=== PATIENT | female | born 1945 | race African-American/Black ===

== ENCOUNTER → 2016-12-22 | Outpatient (CLI) | payer MEDICARE, OTHER ==
[~2016-12-22] MED LIST: ACET-704 PO; ASCO10002 PO; ASPI81TA2 PO; BUPR75TA6 PO; CARV25TA PO; CETI10TA22 PO; CHOL10003 PO; CYCL10TA2 PO; DARB25VI SQ; DOXA8TAB2 PO; FOLI1TAB16 PO; FURO-68 PO; HYDR-2762 PO; HYDR200T PO; HYDR25TA PO; INSU100I13 SQ; INSU200I SQ; LEVO125T5 PO; LIRA0.6P2 SQ; LORA-434 PO; MAGN400C PO; MECL12.52 PO; METH2.5T PO; OLME1TAB35 PO; OLME40TA PO; OMEG1CAP43 PO; PANT40TA3 PO; PENT400T2 PO; POTA10CA PO; POTA10TA10 PO; RANI300T3 PO; TRAM50TA PO; VIT1CAPS20 PO; VIT1TABL65 PO
[2016-12-22 09:27] VITALS: BP 163/81
--- NOTE | 2016-12-22 14:25 | RAD ---
Chest, 2 views, 12/22/2016: History: Productive cough and wheezing Comparison is made to a study from 08/08/2016. The heart is mildly enlarged. The pulmonary vascularity is normal. No pulmonary infiltrates are seen. There is no evidence of pleural fluid. IMPRESSION: 1. Cardiomegaly. 2. No acute abnormality is detected.
== END | disposition home or self-care (01) ==
LOC: DXRADRC 11:10
PROVIDERS: ATTEND Physician Assistant Medical
DX: R05 Cough (principal); R06.2 Wheezing
CPT/HCPCS: 71020

== ENCOUNTER 2017-02-15 17:13 | Emergency (ER) | payer MEDICARE, OTHER ==
[~2017-02-15 17:13] MED LIST changes: +ASPI-630 PO; -ASPI81TA2 PO; +CYCL-331 PO; -CYCL10TA2 PO; -OLME40TA PO; +OLME40TA12 PO
[2017-02-15 17:20] VITALS: BP 143/66
[2017-02-15] MEDS ORDERED: IV NORMAL SALINE 1,000ML 1,000 ML IV SCH (17:36)
[2017-02-15] MEDS ORDERED: 0.9 % SODIUM CHLORIDE 10 ML DISP.SYRIN. IV PRN (17:45)
--- NOTE | 2017-02-15 18:04 | EKG ---
[address] [address] Test Date: 2017-02-15 Test Time: 18:03:25 Pat Name: DANYELLE VERONICA Department: Room: Gender: F Trim Technician: : 1945 Requested By: LATA CHRISTIANSON Order Number: [id number] Reading MD: Rusty Capps Measurements Intervals [place] Rate: 68 P: 46 OK: 240 QRS: 9 QRSD: 82 T: 29 QT: 410 QTc: 441 Interpretive Statements SINUS RHYTHM PROLONGED OK INTERVAL Electronically Signed On 02-16-2017 10:53:41 CDT by Rusty Capps
[2017-02-15 18:06] LABS: BASO # 0.1 x10^3/uL (0.0-0.2); BASO % 1 % (0-3); EOS # 0.6 x10^3/uL (0.0-0.7); EOS % 16 % (0-3); HEMATOCRIT 26.4 % (36.0-47.0); HEMOGLOBIN 9.2 g/dL (12.0-15.5); LYMPH # 1.2 x10^3/uL (1.0-4.8); LYMPH % 30 % (24-48); MEAN CORPUSCULAR HEMOGLOBIN 30 pg (25-35); MEAN CORPUSCULAR HGB CONC 35 g/dL (31-37); MEAN CORPUSCULAR VOLUME 86 fL (79-100); MONO # 0.6 x10^3/uL (0.0-1.1); MONO % 15 % (0-9); NEUT # 1.4 x10^3uL (1.8-7.7); NEUT % 37 % (31-73); PLATELET COUNT 184 x10^3/uL (140-400); RED BLOOD COUNT 3.08 x10^6/uL (3.50-5.40); RED CELL DISTRIBUTION WIDTH 15.7 % (11.5-14.5); WHITE BLOOD COUNT 3.9 x10^3/uL (4.0-11.0)
[2017-02-15 18:17] LABS: ALBUMIN 2.9 g/dL (3.4-5.0); ALBUMIN/GLOBULIN RATIO 0.8 (1.0-1.7); CALCIUM 8.3 mg/dL (8.5-10.1); CREATININE 2.3 mg/dL (0.6-1.0); GFR 25.4; POTASSIUM 4.5 mmol/L (3.5-5.1); TOTAL BILIRUBIN 0.3 mg/dL (0.2-1.0); TOTAL PROTEIN 6.7 g/dL (6.4-8.2)
[2017-02-15] MEDS ORDERED: ACETAMINOPHEN 325 MG TABLET PO PRN (18:30)
[2017-02-15] MEDS ORDERED: ONDANSETRON PF 4 MG/2 ML VIAL. IV PRN (18:30)
--- NOTE | 2017-02-15 18:41 | PHYS DOC ---
Past History Past Medical History: CAD, CHF, Diabetes, Hypertension, Other Past Surgical History: Knee Replacement, Lumbar Laminectomy, Other Smoking: Non-smoker Alcohol Use: Rarely Drug Use: None Adult General Chief Complaint Chief Complaint: ABNORMAL LABS HPI HPI patient is a 71-year-old female with hx of DM and HTN, and ESRD with hyponatrermia noted on routine labs. She sees her nursing department chairperson every 6 months and gets routine labs prior to her evaluation. She has had no complaints, no chest pain no weakness, no dizziness, no paresthesias, no nausea, no vomiting, no change in urinary output, no change in medications, no weight gain. She does have some peripheral edema that is chronic in nature and not changed. She has no questions or concerns at this time she was told to come here secondary to her lab abnormalities Dr. Rueda PCP, Dr. Boo Nephrology Review of Systems Review of Systems Constitutional: Denies fever or chills [] Eyes: Denies change in visual acuity, redness, or eye pain [] HENT: Denies nasal congestion or sore throat [] Respiratory: Denies cough or shortness of breath [] Cardiovascular: No additional information not addressed in HPI [] GI: Denies abdominal pain, nausea, vomiting, bloody stools or diarrhea [] : Denies dysuria or hematuria [] Musculoskeletal: Denies back pain or joint pain [] Integument: Denies rash or skin lesions [] Neurologic: Denies headache, focal weakness or sensory changes [] Endocrine: Denies polyuria or polydipsia [] Current Medications Current Medications Current Medications Medications (Trade) Dose Ordered Sig/[facility] Start Time Stop Time Status Last Admin Dose Admin Sodium Chloride 1,000 ml @ 100 mls/hr Q10H 02/15/17 17:36 02/16/17 03:35 Sodium Chloride (Normal Saline Flush) 10 ml QSHIFT PRN 02/15/17 17:45 Allergies Allergies Allergies Coded Allergies Type Severity Reaction Last Updated Verified nifedipine Allergy Mild Rash 09/05/13 Yes hydralazine Allergy Unknown Photosensitivity 09/15/14 No Physical Exam Physical Exam Constitutional: Well developed, well nourished, no acute distress, non-toxic appearance. [] HENT: Normocephalic, atraumatic, bilateral external ears normal, oropharynx moist, no oral exudates, nose normal. [] Cardiovascular:Heart rate regular rhythm, no murmur [] Lungs & Thorax: Bilateral breath sounds clear to auscultation [] Abdomen: Bowel sounds normal, soft, no tenderness, no masses, no pulsatile masses. Mildly distended abdomen no succussion splash Skin: Warm, dry, no erythema, no rash. [] Back: No tenderness, no CVA tenderness. [] Extremities: No tenderness, no cyanosis, no clubbing, ROM intact, +2 pitting edema to the mid thigh noted Neurologic: Alert and oriented X 3, normal motor function, normal sensory function, no focal deficits noted. [] Psychologic: Affect normal, judgement normal, mood normal. [] Current Patient Data Vital Signs Vital Signs Date Time Temp Pulse Resp B/P (MAP) Pulse Ox O2 Delivery O2 Flow Rate FiO2 02/15/17 17:20 98.6 67 22 99 Room Air Lab Results Nursery Laboratory Tests 02/15/17 17:35: White Blood Count 3.9, Red Blood Count 3.08, Hemoglobin 9.2, Hematocrit 26.4, Mean Corpuscular Volume 86, Mean Corpuscular Hemoglobin 30, Mean Corpuscular Hemoglobin Concent 35, Red Cell Distribution Width 15.7, Platelet Count 184, Neutrophils (%) (Auto) 37, Lymphocytes (%) (Auto) 30, Monocytes (%) (Auto) 15, Eosinophils (%) (Auto) 16, Basophils (%) (Auto) 1, Neutrophils # (Auto) 1.4, Lymphocytes # (Auto) 1.2, Monocytes # (Auto) 0.6, Eosinophils # (Auto) 0.6, Basophils # (Auto) 0.1, Sodium Level 117, Potassium Level 4.5, Chloride Level 83 , Carbon Dioxide Level 28, Anion Gap 6, Blood Urea Nitrogen 38, Creatinine 2.3, Estimated GFR (Cockcroft-Gault) 25.4, BUN/Creatinine Ratio 17, Glucose Level 83 , Calcium Level 8.3, Total Bilirubin 0.3, Aspartate Amino Transf (AST/SGOT) 27, Alanine Aminotransferase (ALT/SGPT) 25, Alkaline Phosphatase 105, Total Protein 6.7, Albumin 2.9, Albumin/Globulin Ratio 0.8 Laboratory Tests Test 02/15/17 17:35 White Blood Count 3.9 x10^3/uL (4.0-11.0) L Red Blood Count 3.08 x10^6/uL (3.50-5.40) L Hemoglobin 9.2 g/dL (12.0-15.5) L Hematocrit 26.4 % (36.0-47.0) L Mean Corpuscular Volume 86 fL (79-100) Mean Corpuscular Hemoglobin 30 pg (25-35) Mean Corpuscular Hemoglobin Concent 35 g/dL (31-37) Red Cell Distribution Width 15.7 % (11.5-14.5) H Platelet Count 184 x10^3/uL (140-400) Neutrophils (%) (Auto) 37 % (31-73) Lymphocytes (%) (Auto) 30 % (24-48) Monocytes (%) (Auto) 15 % (0-9) H Eosinophils (%) (Auto) 16 % (0-3) H Basophils (%) (Auto) 1 % (0-3) Neutrophils # (Auto) 1.4 x10^3uL (1.8-7.7) L Lymphocytes # (Auto) 1.2 x10^3/uL (1.0-4.8) Monocytes # (Auto) 0.6 x10^3/uL (0.0-1.1) Eosinophils # (Auto) 0.6 x10^3/uL (0.0-0.7) Basophils # (Auto) 0.1 x10^3/uL (0.0-0.2) Sodium Level 117 mmol/L (136-145) *L Potassium Level 4.5 mmol/L (3.5-5.1) Chloride Level 83 mmol/L (98-107) L Carbon Dioxide Level 28 mmol/L (21-32) Anion Gap 6 (6-14) Blood Urea Nitrogen 38 mg/dL (7-20) H Creatinine 2.3 mg/dL (0.6-1.0) H Estimated GFR (Cockcroft-Gault) 25.4 BUN/Creatinine Ratio 17 (6-20) Glucose Level 83 mg/dL (70-99) Calcium Level 8.3 mg/dL (8.5-10.1) L Total Bilirubin 0.3 mg/dL (0.2-1.0) Aspartate Amino Transferase (AST) 27 U/L (15-37) Alanine Aminotransferase (ALT) 25 U/L (14-59) Alkaline Phosphatase 105 U/L (46-116) Total Protein 6.7 g/dL (6.4-8.2) Albumin 2.9 g/dL (3.4-5.0) L Albumin/Globulin Ratio 0.8 (1.0-1.7) L EKG EKG ekg, 18:03 date 02/15/17 NSR with 1 degree av block, no st, t changes, no prolonged QT[] read by Dr. Christianson. Radiology/Procedures Radiology/Procedures [] Course & Med Decision Making Course & Med Decision Making Pertinent Labs and Imaging studies reviewed. (See chart for details) patient is a pleasant 8-year-old female with a history of chronic renal insufficiency hypertension and diabetes presents with hyponatremia. She has no concerns complaints or symptoms at this time. She's been admitted to internal medicine []?Admitted to Dr. Watts (18:32) who agrees to be the judicious fluid administration of normal sodium at 75-100 mL per hour is appropriate. I will consult nephrology as required. Impression: Hyponatremia chronic renal insufficiency hypertension Disposition: Admission to the hospital 183 to internal medicine Patient still awaiting bed placement upon my leaving the department. Dragon Disclaimer Dragon Disclaimer This chart was dictated in whole or in part using Voice Recognition software in a busy, high-work load, and often noisy Emergency Department environment. It may contain unintended and wholly unrecognized errors or omissions. Departure Departure: Impression: Primary Impression: Hyponatremia Disposition: 09 ADMITTED INPATIENT Condition: STABLE Referrals: NANCIE ALBRIGHT (PCP) LATA CHRISTIANSON MD February 15, 2017 18:41
--- NOTE | 2017-02-15 19:03 | ACF ---
Admission Criteria Forms HYPONATREMIA; HYPERNATREMIA; HYPOKALEMIA; HYPERKALEMIA; HYPOCALCEMIA; HYPERCALCEMIA Clinical Indications for Inpatient Care (Place 'X' for any and all applicable criteria): Ongoing inpatient care may be indicated for ANY ONE of the following [G](1)(2)(3 )(5): [X]I. Hyponatremia with ANY ONE of the following: [X]a) Sodium less than 130 mEq/L (mmol/L) (new) (6)(22) [ ]b) Sodium less than 135 mEq/L (mmol/L) with ANY ONE of the following: [ ]i) Severe medical etiology requiring inpatient management (eg, heart failure, hypovolemia) [ ]ii) Altered mental status [ ]iii) Seizures [ ]II. Hypernatremia with ANY ONE of the following: [ ]a) Sodium greater than 155 mEq/L (mmol/L) [ ]b) Sodium greater than 150 mEq/L (mmol/L) with ANY ONE of the following: [ ] i) Altered mental status [ ]ii) Seizures [ ]iii) Severe medical etiology (eg, hypovolemia, diabetes insipidus) [ ]iv) Severe weakness [ ]v) Severe medical etiology (eg, hemolysis, infection, drug overdose) [ ]III. Hypokalemia with ANY ONE of the following: [ ]a) Potassium less than 2.5 mEq/L (mmol/L) despite outpatient and emergency treatment [ ]b) Potassium less than 3.0 mEq/L (mmol/L) with ANY ONE of the following: [ ]i) Weakness [ ]ii) Cardiac abnormality (eg, arrhythmia, conduction disturbance) [ ]iii) Cardiac ischemia [ ]iv) Ileus [ ]v) Ongoing medical cause requiring inpatient management. ( e.g., acute renal wasting, SIADH) [ ]vi) Other severe symptoms [ ] IV. Hyperkalemia with ANY ONE of the following: [ ]a) Potassium greater than 6.5 mEq/L (mmol/L) [ ]b) Potassium greater than 5 mEq/L (mmol/L) with ANY ONE of the following: [ ]i) Severe ECG findings [H] [ ]ii) Acute worsening of renal failure (creatinine greater than 2.5 mg/dL (221 micromoles/L) or significant elevation for age and size) [ ] V. Hypocalcemia with ANY ONE of the following: [ ]a) Calcium less than 7 mg/dL (1.75 mmol/L) despite outpatient and emergency treatment(19) [ ]b) Calcium less than 8 mg/dL (2 mmol/L) with significant symptoms or findings; examples include: [ ]i) Cardiac abnormality (eg, arrhythmia or conduction disturbance) [ ]ii) Altered mental status [ ]iii) Seizures [ ]iv) Breathing difficulty [ ]v) Muscle spasms [ ]. Hypercalcemia with ANY ONE of the following: [ ]a) Calcium greater than 14 mg/dL (3.5 mmol/L) [ ]b) Calcium greater than 12 mg/dL (3 mmol/L) with ANY ONE of the following: [ ]i) Significant dehydration or hypovolemia as indicated by ANY ONE of the following(2): [ ]1. Clinically significant dehydration as indicated by ANY ONE of the following: [ ]A. Acute loss of weight from baseline (5% of body weight in adults, 9% in pediatric patients) [ ]B. Hemodynamic instability [ ]C. Acute renal failure [ ]D. Serum sodium greater than 150 mEq/L (mmol/L) [ ]2) Dehydration that is persistent indicated by ALL of the following: [ ]A. Oral rehydration therapy not tolerated or insufficient to adequately correct dehydration [ ]B. Appropriate intravenous treatment (eg, fluids ) does not readily correct dehydration ie, after 12 to 24 hours of treatment) [ ]ii) Significant symptoms or findings; examples include: [ ]1) Altered mental status [ ]2) Cardiac abnormality (eg, arrhythmia, conduction disturbance) [ ]3) Cardiac abnormality (eg, arrhythmia, conduction disturbance) The original [facility] content created by [facility] has been revised. The portions of the content which have been revised are identified through the use of italic text or in bold, and [facility] has neither reviewed nor approved the modified material. All other unmodified content is copyright [facility] [employer] Please see references footnoted in the original [facility] [employer] edition 2016 Admission Criteria Met?: Yes BERNARDA OPWELL February 15, 2017 19:03
[2017-02-16] MEDS ORDERED: ALBI50PE SQ (20:29)
== END 2017-02-15 19:50 | disposition left against medical advice (07) ==
LOC: ER 17:13 → UNDOADMIN 18:31 → 1 SOUTH 18:31 → ER 19:50
DX: E87.1 Hypo-osmolality and hyponatremia (principal); E11.9 Type 2 diabetes mellitus without complications; I25.10 Atherosclerotic heart disease of native coronary artery without angina pectoris; I13.2 Hypertensive heart and chronic kidney disease with heart failure and with stage 5 chronic kidney disease, or end stage renal disease; N18.6 End stage renal disease; I50.9 Heart failure, unspecified; Z88.8 Allergy status to other drugs, medicaments and biological substances
CPT/HCPCS: 36415; 80053; 85027; 93005; 96360; 96361; 99285-25; J7030

== ENCOUNTER 2017-02-16 16:37 | Inpatient (IN) | payer MEDICARE, OTHER ==
[~2017-02-16] VITALS: Ht 152.4 cm; Wt 84.9 kg
--- NOTE | 2017-02-16 16:55 | PHYS DOC ---
General Chief Complaint: ABNORMAL LABS Stated Complaint: ABNORMAL LABS Time Seen by MD: 16:48 Source: patient, old records Exam Limitations: no limitations Problems: (KYLE NAVA DO) Time Seen by MD: 18:58 Problems: (KATINA FORD MD) History of Present Illness Initial Comments Pt is 71/F h/o DM, HTN, ESRD to ED to be admitted for low sodium. Pt was seen [facility] ED yesterday, sent by Dr Subramanian her project crew worker for hyponatremia noted on routine labs. Pt asymptomatic, no cp/weakness/sob/dizzy/paraesthesia/n /v/d. No change in urination, no medication changes or weight change. Pt has some peripheral edema chronic in nature, her sodium yesterday 117 in ED she was admitted to Dr Watts for further evaluation. Upon time to transfer via EMS to hospital pt refused admission and signed out AMA. States she had some things to take care of but is ready to be admitted to hospital today if indicated. No other complaints. Timing/Duration: unsure Severity: moderate Modifying Factors: improves with other Associated Symptoms: denies symptoms (KYLE NAVA DO) Allergies: Coded Allergies: nifedipine (Verified Allergy, Mild, Rash, 09/05/13) hydralazine (Unverified Allergy, Unknown, Photosensitivity, 09/15/14) Past Medical History Medical History: other (CAD, CHF, DM, HTN, ESRD) Surgical History: other (TKR, lumbar laminectomy) (KYLE NAVA DO) Social History Smoker: non-smoker Alcohol: rarely Drugs: none (KYLE NAVA DO) Review of Systems Constitutional: denies chills, denies fever Respiratory: denies cough, denies shortness of breath Cardiovascular: denies chest pain, denies palpitations Gastrointestinal: denies diarrhea, denies nausea, denies vomiting Genitourinary: denies frequency, denies hematuria Musculoskeletal: denies back pain, denies neck pain Psychiatric/Neurological: denies headache, denies numbness, denies paresthesia (KYLE NAVA DO) Physical Exam General Appearance: no apparent distress, obese Eyes: bilateral eye normal inspection, bilateral eye PERRL, bilateral eye EOMI Ear, Nose, Throat: hearing grossly normal, normal ENT inspection, normal pharynx Neck: non-tender, supple Respiratory: normal breath sounds, no respiratory distress Cardiovascular: normal peripheral pulses, regular rate, rhythm Gastrointestinal: non tender, soft Back: no CVA tenderness, no vertebral tenderness Extremities: normal range of motion, non-tender (2+ pitting LE edema) Neurologic/Psychiatric: cashier general II-XII nml as tested, no motor/sensory deficits, alert, normal mood/affect, oriented x 3 Skin: normal color, warm/dry (KYLE NAVA DO) Orders, Labs, Meds EKG: NSR 66 bpm, no STEMI 1803: Labs pending, pt signed out to Dr Ford at 1800 shift change. See her documentation for results/disposition. (KYLE NAVA DO) Orders, Labs, Meds Assummed care At shift change. Reviewed lab. Sodium is slightly improved but is still considerably hyponatremic at 121. Potassium is normal at 4.0; bun 41 and creatinine 2.3. Patient is agreeable to be admitted at this time. Spoke with Dr Felipe Watts at 1900 PM and accepted patient for obsv; Med surg with NS at 75 cc/hr. Will repeat lytes in am. (KATINA FORD MD) Departure Time of Disposition: 19:01 (KATINA FORD MD) Disposition: ADMITTED INPATIENT Condition: GOOD KYLE NAVA DO February 16, 2017 16:55 KATINA FORD MD February 16, 2017 19:04
--- NOTE | 2017-02-16 17:59 | EKG ---
[address] [address] Test Date: 2017-02-16 Test Time: 17:06:02 Pat Name: DANYELLE VERONICA Department: Room: Gender: F Pharmacy Technician Per Diem: CHRISTIANO : 1945 Requested By: KYLE NAVA Order Number: [id number] Reading MD: Rusty Capps Measurements Intervals [place] Rate: 66 P: 49 ID: [id number] QRS: 15 QRSD: 90 T: 32 QT: 400 QTc: 421 Interpretive Statements SINUS RHYTHM PROLONGED ID INTERVAL Electronically Signed On 02-17-2017 9:11:38 CDT by Rusty Capps
[2017-02-16 18:16] LABS: BASO % 1 % (0-3); EOS # 0.5 x10^3/uL (0.0-0.7); EOS % 13 % (0-3); HEMATOCRIT 24.4 % (36.0-47.0); HEMOGLOBIN 8.4 g/dL (12.0-15.5); LYMPH # 0.9 x10^3/uL (1.0-4.8); LYMPH % 27 % (24-48); MEAN CORPUSCULAR HEMOGLOBIN 29 pg (25-35); MEAN CORPUSCULAR HGB CONC 34 g/dL (31-37); MEAN CORPUSCULAR VOLUME 85 fL (79-100); MONO # 0.5 x10^3/uL (0.0-1.1); MONO % 14 % (0-9); NEUT # 1.6 x10^3uL (1.8-7.7); NEUT % 46 % (31-73); PLATELET COUNT 152 x10^3/uL (140-400); RED BLOOD COUNT 2.86 x10^6/uL (3.50-5.40); RED CELL DISTRIBUTION WIDTH 16.1 % (11.5-14.5); WHITE BLOOD COUNT 3.6 x10^3/uL (4.0-11.0)
[2017-02-16 18:30] LABS: ALBUMIN 2.8 g/dL (3.4-5.0); ALBUMIN/GLOBULIN RATIO 0.9 (1.0-1.7); CALCIUM 7.9 mg/dL (8.5-10.1); CREATININE 2.3 mg/dL (0.6-1.0); GFR 25.4; TOTAL BILIRUBIN 0.3 mg/dL (0.2-1.0); TOTAL PROTEIN 5.9 g/dL (6.4-8.2)
[2017-02-16] MEDS ORDERED: ACETAMINOPHEN 325 MG TABLET PO PRN (19:15)
[2017-02-16] MEDS ORDERED: ONDANSETRON PF 4 MG/2 ML VIAL. IV PRN (19:15)
[2017-02-16] MEDS ORDERED: IV NORMAL SALINE 1,000ML 1,000 ML IV ONE (19:30)
[2017-02-16 20:20] VITALS: BP 144/67
[2017-02-16] MEDS ORDERED: ALBI50PE SQ (20:29)
[2017-02-16] MEDS ORDERED: LORazepam 1 MG TABLET PO PRN (21:00)
[2017-02-16] MEDS ORDERED: traMADol 50 MG TABLET PO PRN (21:00)
[2017-02-16] MEDS ORDERED: MECLIZINE 12.5 MG TABLET. PO PRN (21:00)
[2017-02-16] MEDS ORDERED: CETIRIZINE HCL 10 MG TABLET PO PRN (21:00)
[2017-02-16] MEDS ORDERED: PANTOPRAZOLE 40 MG TABLET. PO PRN (21:00)
[2017-02-16] MEDS: HYDROcodone/APAP 7.5/325MG 1 TAB TABLET PO PRN (21:38)
[2017-02-16] MEDS: INSULIN DETEMIR 300 UNITS/3 ML INSULN.PEN. SQ SCH (21:41)
[2017-02-16 21:48] LABS: BILIRUBIN,URINE NEG (NEG); CLARITY,URINE CLEAR; COLOR,URINE STRAW; GLUCOSE,URINE NEG (NEG); NITRITE,URINE NEG (NEG); UROBILINOGEN,URINE 0.2 mg/dL (0.2 mg/dL)
[2017-02-16 21:49] LABS: BACTERIA,URINE 0 /HPF (0-FEW); RBC,URINE OCC /HPF (0-2); SQUAMOUS EPITHELIAL CELL,UR MOD /LPF
[2017-02-16 22:48] VITALS: BP 119/67
[2017-02-17 05:04] VITALS: BP 137/62
--- NOTE | 2017-02-17 06:14 | ACF ---
Admission Criteria Forms HYPONATREMIA; HYPERNATREMIA; HYPOKALEMIA; HYPERKALEMIA; HYPOCALCEMIA; HYPERCALCEMIA Clinical Indications for Inpatient Care (Place 'X' for any and all applicable criteria): Ongoing inpatient care may be indicated for ANY ONE of the following [G](1)(2)(3 )(5): [X]I. Hyponatremia with ANY ONE of the following: [X]a) Sodium less than 130 mEq/L (mmol/L) (new) (6)(22) [ ]b) Sodium less than 135 mEq/L (mmol/L) with ANY ONE of the following: [ ]i) Severe medical etiology requiring inpatient management (eg, heart failure, hypovolemia) [ ]ii) Altered mental status [ ]iii) Seizures [ ]II. Hypernatremia with ANY ONE of the following: [ ]a) Sodium greater than 155 mEq/L (mmol/L) [ ]b) Sodium greater than 150 mEq/L (mmol/L) with ANY ONE of the following: [ ] i) Altered mental status [ ]ii) Seizures [ ]iii) Severe medical etiology (eg, hypovolemia, diabetes insipidus) [ ]iv) Severe weakness [ ]v) Severe medical etiology (eg, hemolysis, infection, drug overdose) [ ]III. Hypokalemia with ANY ONE of the following: [ ]a) Potassium less than 2.5 mEq/L (mmol/L) despite outpatient and emergency treatment [ ]b) Potassium less than 3.0 mEq/L (mmol/L) with ANY ONE of the following: [ ]i) Weakness [ ]ii) Cardiac abnormality (eg, arrhythmia, conduction disturbance) [ ]iii) Cardiac ischemia [ ]iv) Ileus [ ]v) Ongoing medical cause requiring inpatient management. ( e.g., acute renal wasting, SIADH) [ ]vi) Other severe symptoms [ ] IV. Hyperkalemia with ANY ONE of the following: [ ]a) Potassium greater than 6.5 mEq/L (mmol/L) [ ]b) Potassium greater than 5 mEq/L (mmol/L) with ANY ONE of the following: [ ]i) Severe ECG findings [H] [ ]ii) Acute worsening of renal failure (creatinine greater than 2.5 mg/dL (221 micromoles/L) or significant elevation for age and size) [ ] V. Hypocalcemia with ANY ONE of the following: [ ]a) Calcium less than 7 mg/dL (1.75 mmol/L) despite outpatient and emergency treatment(19) [ ]b) Calcium less than 8 mg/dL (2 mmol/L) with significant symptoms or findings; examples include: [ ]i) Cardiac abnormality (eg, arrhythmia or conduction disturbance) [ ]ii) Altered mental status [ ]iii) Seizures [ ]iv) Breathing difficulty [ ]v) Muscle spasms [ ]. Hypercalcemia with ANY ONE of the following: [ ]a) Calcium greater than 14 mg/dL (3.5 mmol/L) [ ]b) Calcium greater than 12 mg/dL (3 mmol/L) with ANY ONE of the following: [ ]i) Significant dehydration or hypovolemia as indicated by ANY ONE of the following(2): [ ]1. Clinically significant dehydration as indicated by ANY ONE of the following: [ ]A. Acute loss of weight from baseline (5% of body weight in adults, 9% in pediatric patients) [ ]B. Hemodynamic instability [ ]C. Acute renal failure [ ]D. Serum sodium greater than 150 mEq/L (mmol/L) [ ]2) Dehydration that is persistent indicated by ALL of the following: [ ]A. Oral rehydration therapy not tolerated or insufficient to adequately correct dehydration [ ]B. Appropriate intravenous treatment (eg, fluids ) does not readily correct dehydration ie, after 12 to 24 hours of treatment) [ ]ii) Significant symptoms or findings; examples include: [ ]1) Altered mental status [ ]2) Cardiac abnormality (eg, arrhythmia, conduction disturbance) [ ]3) Cardiac abnormality (eg, arrhythmia, conduction disturbance) The original [facility] content created by [employer] has been revised. The portions of the content which have been revised are identified through the use of italic text or in bold, and [facility] has neither reviewed nor approved the modified material. All other unmodified content is copyright [facility] [employer] Please see references footnoted in the original [facility] [employer] edition 2016 Admission Criteria Met?: Yes CHRISTINE DRAKE February 17, 2017 06:14
[2017-02-17 06:22] LABS: BASO % 1 % (0-3); EOS # 0.5 x10^3/uL (0.0-0.7); EOS % 15 % (0-3); HEMOGLOBIN 7.9 g/dL (12.0-15.5); LYMPH # 0.9 x10^3/uL (1.0-4.8); LYMPH % 28 % (24-48); MEAN CORPUSCULAR HEMOGLOBIN 30 pg (25-35); MEAN CORPUSCULAR HGB CONC 34 g/dL (31-37); MEAN CORPUSCULAR VOLUME 86 fL (79-100); MONO # 0.6 x10^3/uL (0.0-1.1); MONO % 18 % (0-9); NEUT # 1.2 x10^3uL (1.8-7.7); NEUT % 39 % (31-73); PLATELET COUNT 138 x10^3/uL (140-400); RED BLOOD COUNT 2.68 x10^6/uL (3.50-5.40); RED CELL DISTRIBUTION WIDTH 16.1 % (11.5-14.5); WHITE BLOOD COUNT 3.1 x10^3/uL (4.0-11.0)
[2017-02-17 06:23] LABS: CALCIUM 7.9 mg/dL (8.5-10.1); CREATININE 2.2 mg/dL (0.6-1.0); GFR 26.7; POTASSIUM 3.9 mmol/L (3.5-5.1)
[2017-02-17 08:54] VITALS: BP 142/74
[2017-02-17] MEDS: LEVOTHYROXINE 100 MCG TABLET PO SCH (08:55)
[2017-02-17] MEDS: CARVEDILOL 25 MG TABLET PO SCH ×2 (08:56→17:12)
[2017-02-17] MEDS: PENTOXIFYLLINE ER 400 MG TABLET.ER. PO SCH ×3 (08:56→17:07)
[2017-02-17] MEDS: FUROSEMIDE 40 MG TABLET PO SCH ×2 (08:56→17:07)
[2017-02-17] MEDS: ASPIRIN 81 MG TAB.CHEW PO SCH (08:56)
[2017-02-17] MEDS: hydroCHLOROthiazide 25 MG TABLET PO SCH (08:57)
[2017-02-17] MEDS: LOSARTAN 50 MG TABLET. PO SCH (08:57)
[2017-02-17] MEDS: amLODIPine BESYLATE 10 MG TABLET PO SCH (08:57)
[2017-02-17] MEDS: OMEGA-3 FATTY ACIDS/FISH OIL 1,000 MG CAPSULE. PO SCH (09:01)
[2017-02-17] MEDS: IV NORMAL SALINE 1,000ML 1,000 ML IV SCH ×2 (10:02→20:21)
[2017-02-17 10:50] VITALS: BP 130/62
--- NOTE | 2017-02-17 13:37 | HP ---
ADMIT DATE: 02/17/2017 REASON FOR ADMISSION: Hyponatremia. HISTORY OF PRESENT ILLNESS: This is a 71-year-old female who 2 days ago had a sodium of 117. She was sent to be admitted and because of having a dog where no one would be able to take care of it, she went back home. She presented yesterday again to the Emergency Room and still had a low sodium and so was admitted. PAST MEDICAL HISTORY: She has chronic kidney disease stage 3; chronic hyponatremia, etiology unknown; spinal stenosis; sciatica; type 2 diabetes; hypothyroidism. The patient has severe anemia and gets Aranesp shots from that, but she did miss her shot in January. Had an admission in August 2016 for syncope and hypoglycemia. PAST SURGICAL HISTORY: Bilateral cataract removal, total knee replacement, hysterectomy, recent back surgery in January. ALLERGIES: HYDRALAZINE AND NIFEDIPINE. MEDICATIONS: Reviewed and are available on the MAR. SOCIAL HISTORY: The patient lives alone with her dog. She is a . Her in 2013. She is retired from the [employer], used to work at [employer]. She is retired in 2012. FAMILY HISTORY: Noncontributory. REVIEW OF SYSTEMS: Positive for lower extremity swelling. Denies any type of seizure activity related to the hyponatremia. Otherwise, negative. OBJECTIVE: VITAL SIGNS: Blood pressure 130/62, temperature 98.2, pulse 68, respirations 20, O2 sat is 100% on room air. Height 60 inches, weight 170.31 pounds. GENERAL: Pleasant female, in no acute distress. HEENT: Her hearing is normal. Her eyes are clear. Eye grounds are pale. Nose was patent. Throat was clear. NECK: Supple, without adenopathy. LUNGS: Clear to auscultation. CARDIOVASCULAR: Regular rhythm and rate with a short systolic murmur. ABDOMEN: Soft, nontender. EXTREMITIES: With 1+ edema. LABORATORY DATA: After hydration, her hemoglobin is 7.9; hematocrit is 23.0; platelet count 138,000. Chemistry: Sodium is up to 123 from 117, BUN is 42, creatinine is 2.2 and about the same; albumin is 2.8. ASSESSMENT: 1. Hyponatremia, worsened. 2. Severe normochromic normocytic anemia, getting Aranesp shots for that. 3. Type 2 diabetes. 4. Moderate protein malnutrition. 5. Mild thrombocytopenia. PLAN: Gentle hydration with normal saline and monitor her blood count and make sure she follows up with her first beater and community advocate. NATALIA ISBELL DO DR: ELVIRA/christina JOB#: [id number] / [id number]
[2017-02-17 14:46] VITALS: BP 128/64
[2017-02-17 17:13] VITALS: BP 147/68
[2017-02-17 20:24] VITALS: BP 126/66
[2017-02-17] MEDS: INSULIN DETEMIR 300 UNITS/3 ML INSULN.PEN. SQ SCH (20:25)
[2017-02-18 05:17] VITALS: BP 121/81
[2017-02-18 06:27] LABS: ALBUMIN 2.4 g/dL (3.4-5.0); ALBUMIN/GLOBULIN RATIO 0.7 (1.0-1.7); CREATININE 1.8 mg/dL (0.6-1.0); GFR 33.7; POTASSIUM 3.7 mmol/L (3.5-5.1); TOTAL BILIRUBIN 0.2 mg/dL (0.2-1.0); TOTAL PROTEIN 5.8 g/dL (6.4-8.2)
[2017-02-18 06:33] LABS: BASO % 1 % (0-3); EOS # 0.6 x10^3/uL (0.0-0.7); EOS % 15 % (0-3); HEMATOCRIT 23.5 % (36.0-47.0); HEMOGLOBIN 8.2 g/dL (12.0-15.5); LYMPH % 28 % (24-48); MEAN CORPUSCULAR HEMOGLOBIN 30 pg (25-35); MEAN CORPUSCULAR HGB CONC 35 g/dL (31-37); MEAN CORPUSCULAR VOLUME 86 fL (79-100); MONO # 0.5 x10^3/uL (0.0-1.1); MONO % 13 % (0-9); NEUT # 1.7 x10^3uL (1.8-7.7); NEUT % 45 % (31-73); PLATELET COUNT 152 x10^3/uL (140-400); RED BLOOD COUNT 2.74 x10^6/uL (3.50-5.40); RED CELL DISTRIBUTION WIDTH 16.3 % (11.5-14.5); WHITE BLOOD COUNT 3.8 x10^3/uL (4.0-11.0)
[2017-02-18] MEDS: LEVOTHYROXINE 100 MCG TABLET PO SCH (08:40)
[2017-02-18] MEDS: CARVEDILOL 25 MG TABLET PO SCH (08:43)
[2017-02-18] MEDS: HYDROcodone/APAP 7.5/325MG 1 TAB TABLET PO PRN (08:44)
[2017-02-18] MEDS: FUROSEMIDE 40 MG TABLET PO SCH (08:45)
[2017-02-18] MEDS: PENTOXIFYLLINE ER 400 MG TABLET.ER. PO SCH ×2 (08:45→12:43)
[2017-02-18] MEDS: hydroCHLOROthiazide 25 MG TABLET PO SCH (08:46)
[2017-02-18] MEDS: ASPIRIN 81 MG TAB.CHEW PO SCH (08:47)
[2017-02-18] MEDS: LOSARTAN 50 MG TABLET. PO SCH (08:49)
[2017-02-18] MEDS: amLODIPine BESYLATE 10 MG TABLET PO SCH (08:50)
[2017-02-18] MEDS: OMEGA-3 FATTY ACIDS/FISH OIL 1,000 MG CAPSULE. PO SCH (08:51)
[2017-02-18 10:42] VITALS: BP 154/62
--- NOTE | 2017-02-18 12:43 | DS ---
DATE OF DISCHARGE: 02/18/2017 DISCHARGE DIAGNOSES: 1. Severe hyponatremia, much improved. 2. Chronic hyponatremia. 3. Normochromic normocytic anemia. 4. Type 2 diabetes. 5. Moderate protein malnutrition. 6. Mild thrombocytopenia. HOSPITAL COURSE: This is a 71-year-old female who has had some longstanding issues with hyponatremia and is followed by Dr. Subramanian, yarn tester. Her initial sodium was 118. However, she was not admitted that day, but was admitted the next day with a sodium of 121. She has had gentle hydration with normal which has brought her sodium up to 127, which is about her baseline. She is feeling well and is anxious to go home. OBJECTIVE: VITAL SIGNS: Blood pressure 121/81, pulse 69, temperature 97.9, pulse ox 99% on room air. GENERAL: The patient looks good. HEENT: Her tongue was moist. NECK: Supple. LUNGS: Clear. CARDIOVASCULAR: Regular rhythm and rate with a short systolic murmur. EXTREMITIES: With 1+ edema which is chronic. DISPOSITION: To home. MEDICATION: See MRAD. FOLLOWUP: She is to follow up with Dr. Subramanian. Given her copies of her labs to take to Dr Subramanian. NATALIA ISBELL DO DR: ELVIRA/christina JOB#: [id number] / [id number] MAIRA Odonnell MD
== END 2017-02-18 13:00 | disposition home or self-care (01) | DRG 640 ==
LOC: ER 16:37 → 1 SOUTH 19:08 → OBSVTOIN 02-17 07:58
PROVIDERS: ADMIT Family Medicine; ATTEND Family Medicine
DX: E87.1 Hypo-osmolality and hyponatremia (principal); N18.6 End stage renal disease; E44.0 Moderate protein-calorie malnutrition; I13.2 Hypertensive heart and chronic kidney disease with heart failure and with stage 5 chronic kidney disease, or end stage renal disease; E11.22 Type 2 diabetes mellitus with diabetic chronic kidney disease; E03.9 Hypothyroidism, unspecified; D69.6 Thrombocytopenia, unspecified; D64.9 Anemia, unspecified; F17.200 Nicotine dependence, unspecified, uncomplicated; I25.10 Atherosclerotic heart disease of native coronary artery without angina pectoris; I50.9 Heart failure, unspecified; Z96.659 Presence of unspecified artificial knee joint; E11.649 Type 2 diabetes mellitus with hypoglycemia without coma; R55 Syncope and collapse; Z98.49 Cataract extraction status, unspecified eye; Z90.710 Acquired absence of both cervix and uterus; Z88.8 Allergy status to other drugs, medicaments and biological substances
CPT/HCPCS: 36415; 80048; 80053; 81001; 82550; 82947; 83735; 83880; 84484; 85027; 93005; G0378; G0379; J1815; 99285-25; J7030

== ENCOUNTER → 2019-07-07 | Outpatient (CLI) | payer MEDICARE, OTHER ==
[2019-06-29 09:40] VITALS: BP 138/71
[~2019-07-07] MED LIST changes: +ALBI50PE3 SQ; -HYDR-2762 PO; +HYDR-2765 PO; -HYDR200T PO; +HYDR200T71 PO; +LORA-254 PO; -LORA-434 PO; -PENT400T2 PO; +PENT400T7 PO
[2019-07-07 11:34] LABS: BASO % 0 % (0-3); EOS # 0.3 x10^3/uL (0.0-0.7); EOS % 7 % (0-3); HEMATOCRIT 30.8 % (36.0-47.0); HEMOGLOBIN 9.9 g/dL (12.0-15.5); LYMPH % 19 % (24-48); MEAN CORPUSCULAR HEMOGLOBIN 30 pg (25-35); MEAN CORPUSCULAR HGB CONC 32 g/dL (31-37); MEAN CORPUSCULAR VOLUME 94 fL (79-100); MONO # 0.4 x10^3/uL (0.0-1.1); MONO % 8 % (0-9); NEUT # 3.3 x10^3uL (1.8-7.7); NEUT % 65 % (31-73); PLATELET COUNT 194 x10^3/uL (140-400); RED BLOOD COUNT 3.28 x10^6/uL (3.50-5.40); RED CELL DISTRIBUTION WIDTH 16.3 % (11.5-14.5)
[2019-07-07 13:39] LABS: ALBUMIN 2.7 g/dL (3.4-5.0); CALCIUM 8.2 mg/dL (8.5-10.1); CREATININE 4.3 mg/dL (0.6-1.0); DIRECT BILIRUBIN 0.1 mg/dL (0.0-0.2); GFR 12.2; POTASSIUM 5.6 mmol/L (3.5-5.1); TOTAL BILIRUBIN 0.1 mg/dL (0.2-1.0); TOTAL PROTEIN 6.5 g/dL (6.4-8.2)
== END | disposition home or self-care (01) ==
LOC: PMG 10:42
PROVIDERS: ATTEND Physician Assistant Medical
DX: R19.7 Diarrhea, unspecified (principal); R17 Unspecified jaundice
CPT/HCPCS: 36415; 80048; 80076; 82977; 85025

== ENCOUNTER → 2020-09-25 | Outpatient (CLI) | payer MEDICARE, OTHER ==
[2019-07-13 13:15] VITALS: BP 159/74
[~2020-09-25] MED LIST changes: +ASCO100019 PO; -ASCO10002 PO; -CETI10TA22 PO; +CETI10TA74 PO; -MECL12.52 PO; +MECL12.573 PO
--- NOTE | 2020-09-25 15:25 | RAD ---
PQRS Compliance Statement: One or more of the following individualized dose reduction techniques were utilized for this examinat ion: 1. Automated exposure control 2. Adjustment of the mA and/or kV according to patient size 3. Use of iterative reconstruction technique CT abdomen/pelvis without contrast 09/25/2020 11:04 AM INDICATION: Abdominal pain COMPARISON: None available TECHNIQUE: Multiple axial CT images of the abdomen and pelvis were obtained without intravenous contr ast. Coronal and sagittal reformats are provided. FINDINGS: Lung bases are clear. Heart size is within normal limits. Mitral annular calcifications are partially profiled. Evaluation of solid abdominal viscera is limited by lack of intravenous contrast. 6 mm yomaira pected cyst identified in inferior right hepatic lobe. Spleen, bilateral adrenal glands, pancreas and gallbladder are normal in appearance. Abdominal aorta is normal in course and caliber. There are no pathologically enlarged lymph nodes in abdomen and pelvis. There is no free fluid or free intraperito manda air. The kidneys are relatively symmetric in appearance. There is no suspicious renal mass withi n the limitations of a noncontrast examination. There is no hydronephrosis. There are no calculi with in the kidneys, ureters or urinary bladder. Urinary bladder is decompressed, limiting evaluation. No suspicious pelvic mass. Small large bowel are normal in caliber. No bowel obstruction or inflammation . Small fat-containing umbilical hernia is noted measuring 1.5 cm. No bowel obstruction or inflammati on. Appendix is normal in appearance. No suspicious osseous abnormality is identified. IMPRESSION: No acute abnormalities identified in abdomen and pelvis. Electronically signed by: Lillian Carreno MD (09/25/2020 3:22 PM) [id number]
== END ==
LOC: CT 10:52
PROVIDERS: ATTEND Physician Assistant Medical
DX: R10.9 Unspecified abdominal pain (principal)
CPT/HCPCS: 74176

== ENCOUNTER → 2021-03-31 | Outpatient (CLI) | payer MEDICARE, OTHER ==
[2019-07-13 13:15] VITALS: BP 159/74
[~2021-03-31] MED LIST changes: -MECL12.573 PO; +MECL12.582 PO
--- NOTE | 2021-03-31 09:26 | RAD ---
XR HAND_RIGHT 3 VIEWS History: Pain. Swelling at the base/palmar side of the fourth digit. Comparison: None. Technique: 3 views of the right hand. Findings: Decreased osseous mineralization. No fracture or dislocation. Moderate degenerative change at the tri scaphe, thumb CMC, MCP and IP joints. Mild degenerative changes at the remainder of the interphalange al joints. No aggressive osseous erosive process. Soft tissues are unremarkable. Impression: 1. Degenerative changes without acute osseous abnormality of the right hand. Electronically signed by: Bari Lozada MD (03/31/2021 9:23 AM) [id number]
== END ==
LOC: PMG 08:53
PROVIDERS: ATTEND Physician Assistant Medical
DX: M19.041 Primary osteoarthritis, right hand (principal)
CPT/HCPCS: 73130